=== PATIENT | male | born 1980 ===

== ENCOUNTER 2018-01-11 15:09 | Emergency (ER) | payer MEDICAID, OTHER ==
[2018-01-11 15:17] VITALS: O2SAT 97
--- NOTE | 2018-01-11 16:23 | ED PDOC ---
HPI: Chest Pain Time Seen by Provider: 01/11/18 15:22 Chief Complaint (Nursing): Chest Pain History Per: Patient, Family () Additional Complaint(s): Pt. states for the past week he's non-radiating b/l upper chest pain, neck pain radiating to the L shoulder, and a gradual onset holocephalic headache. Reports he has been self medicating with his 's propranolol/HCTZ as he checked his BP several days ago and it was 175/96. Of note, pt. has a hx of HTN and hypercholesterolemia but has not taken his meds in several years nor has he been seen by his PMD. States he lost his insurance. Denies SOB, trauma, visual changes, leg pain, hx of DVT or PE, fever, LOC, N/V/D, recent illness. Against Medical Advice - AMA Patient Left Against Medical Advice: The patient declines admission to the hospital and wishes to leave the Emergency Department. This action is against my medical advice. This decision was made with informed refusal. The patient was told that admission to the hospital is necessary. Explanation of the reasons why were discussed. The risks of leaving were explained to the patient and include, but are not limited to, worsening of known or currently unknown conditions, permanent disability and from undiagnosed or untreated conditions. The patient has the capacity to make this informed decision and understands my explanation of the current medical problem and risks of leaving. The patient voluntarily accepts these risks and signed an AMA form documenting our conversation. The patient was given the opportunity to ask questions and reconsider. The patient was encouraged to return to the Emergency Department at any time for further care. 01/11/18 19:30 Informed of all results and need to stay in the hospital for further evaluation. Refused and states he prefers to f/u with clinic instead. Encouraged to stay but still refused and told to return to ED immediately. ASA 324mg PO chew ordered. Past Medical History Reviewed: Historical Data, Nursing Documentation, Vital Signs Vital Signs: Last Vital Signs Temp 98.5 F 01/11/18 19:20 Pulse 67 01/11/18 19:43 Resp 16 01/11/18 19:20 BP 133/84 01/11/18 19:20 Pulse Ox 97 01/11/18 19:43 - Medical History PMH: Anxiety, HTN, Hypercholesterolemia Denies: CAD, HIV, Chronic Kidney Disease - Surgical History Other surgeries: R ankle surgery - Family History Family History: States: No Known Family Hx, MS Denies: CAD Other Family History: Uncle (mother's side) at 53 y/o. Aunt (mother's side) at 52 y/o - Living Arrangements Living Arrangements: With Family - Social History Current smoker - smoking cessation education provided: No Ex-Smoker (has not smoked in the last 12 months): No Alcohol: > 2 Drinks/Day Drugs: Denies - Home Medications Home Medications: Ambulatory Orders Medication Instructions Recorded metFORMIN [glucOPHAGE] 500 mg PO DAILY #7 tab 01/11/18 - Allergies Allergies/Adverse Reactions: Allergies Allergy/AdvReac Type Severity Reaction Status Date / Time No Known Allergies Allergy Verified 01/11/18 15:13 RENAN Risk Score for UA/NSTEMI - RENAN Risk Score Age > 64: NO 3 or more CAD Risk Factors: NO Known CAD (Stenosis greater than 50%): NO Aspirin use in past 7 days: NO Severe Angina: NO EKG ST changes greater than 0.5mm: NO Positive Cardiac Marker: NO RENAN Score: 0 Risk %: 5% Wells Criteria for PE - Wells Criteria for Pulmonary Embolism Clinical Signs and Symptoms of DVT: No P.E is #1 Diagnosis, or Equally Likely: No Heart Rate >100: No Immobilization at least 3 days;Surgery previous 4 weeks: No Previous, objectively diagnosed PE or DVT: No Hemoptysis: No Malignancy w/treatment within 6 months, or palliative: No Total Score: 0 Review of Systems ROS Statement: Except As Marked, All Systems Reviewed And Found Negative Cardiovascular: Positive for: Chest Pain Musculoskeletal: Positive for: Neck Pain Neurological: Positive for: Headache Physical Exam - Reviewed Nursing Documentation Reviewed: Yes Vital Signs Reviewed: Yes - Physical Exam Appears: Positive for: Well, Non-toxic, No Acute Distress Head Exam: Positive for: ATRAUMATIC, NORMAL INSPECTION, NORMOCEPHALIC Skin: Positive for: Normal Color, Warm. Negative for: Rash Eye Exam: Positive for: EOMI, Normal appearance, PERRL ENT: Positive for: Normal ENT Inspection Neck: Positive for: Normal, Painless ROM Cardiovascular/Chest: Positive for: Regular Rate, Rhythm, Chest Non Tender Respiratory: Positive for: Normal Breath Sounds. Negative for: Respiratory Distress Gastrointestinal/Abdominal: Positive for: Normal Exam, Soft. Negative for: Tenderness Back: Positive for: Normal Inspection. Negative for: L CVA Tenderness, R CVA Tenderness Extremity: Positive for: Normal ROM Neurologic/Psych: Positive for: Alert, Oriented, Gait (steady, unassisted), Other (no slurred speech or AOB). Negative for: Aphasia, Facial Droop - Laboratory Results Result Diagrams: 01/11/18 17:13 01/11/18 17:13 - ECG ECG: Positive for: Interpreted By Me ECG Rhythm: Positive for: Sinus Rhythm. Negative for: ST/T Changes Rate: 67 O2 Sat by Pulse Oximetry: 97 - Radiology X-Ray: Interpreted by Me (CXR, c-spine x-ray) X-Ray Interpretation: No Acute Disease - Progress ED Course And Treament: Labs, CT head w/o contrast, CXR, C-spine x-ray, toradol 30mg IV, IV NS bolus, EKG ordered. Disposition - Clinical Impression Clinical Impression: Acute chest pain, Hyperglycemia, Headache, Neck pain, Left against medical advice - Patient ED Disposition Is Patient to be Admitted: No - Disposition Referrals: [facility] [Outside] [facility] [Outside] Disposition: Against Medical Advice Disposition Time: 19:22 Condition: STABLE Additional Instructions: KINDRA SINCLAIR, thank you for letting us take care of you today. Your provider was Leanna Cunningham MD and you were treated for CHEST PAIN. The emergency medical care you received today was directed at your acute symptoms. If you were prescribed any medication, please fill it and take as directed. It may take several days for your symptoms to resolve. Return to the Emergency Department if your symptoms worsen, do not improve, or if you have any other problems. Please contact your doctor or call one of the physicians/clinics you have been referred to that are listed on the Patient Visit Information form that is included in your discharge packet. Bring any paperwork you were given at discharge with you along with any medications you are taking to your follow up visit. Our treatment cannot replace ongoing medical care by a primary care provider outside of the emergency department. Thank you for allowing the [facility] team to be part of your care today. If you had an X-Ray or CT scan: A Radiologist will review the ED reading if any change in treatment is needed we will contact you. If you had a blood, urine, or wound culture: It will take several days for the results, if any change in treatment is needed we will contact you. If you had an STI test: It will take 48 hours for the results. Please call after 1 week if you have not heard back. Prescriptions: metFORMIN [glucOPHAGE] 500 mg PO DAILY #7 tab Instructions: Headache, Adult, Chest Pain (DC), Hyperglycemia, Adult (DC), Leaving Against Medical Advice, Diabetes and Diet Forms: [facility] (Vietnamese) Print Language: MONEGASQUE
[2018-01-11 16:26] VITALS: PULSE 67
--- NOTE | 2018-01-11 16:37 | RAD ---
HISTORY: COMPARISON: 09/26/2014. TECHNIQUE: Chest PA and lateral FINDINGS: LINES AND TUBES: None. LUNG AND PLEURA: The lungs are well inflated and clear. No pleural effusion or pneumothorax. HEART AND MEDIASTINUM: The heart is not enlarged. The hilar and mediastinal contours are within normal limits. SKELETAL STRUCTURES: The bony structures are within normal limits for the patient's age. VISUALIZED UPPER ABDOMEN: Normal. OTHER FINDINGS: None. IMPRESSION: No active pulmonary disease.
--- NOTE | 2018-01-11 16:39 | RAD ---
Date of service: 01/11/2018 PROCEDURE: Cervical Spine Radiographs. HISTORY: Pain. COMPARISON: None. FINDINGS: BONES: There is normal alignment of the cervical vertebral bodies. There is straightening of the cervical spine with loss of normal cervical lordosis. Vertebral height is normal. Bone mineralization is normal. There is no acute fracture or traumatic anterior listhesis. The craniocervical junction is normal. The atlantoaxial joint normal. DISC SPACES: There is mild degenerative disc disease at C5-6 with anterior osteophytes, mild reduced disc heights and mild facet arthropathy. The remaining disc heights are maintained. SOFT TISSUES: Normal. No prevertebral soft tissue swelling. OTHER FINDINGS: None. IMPRESSION: Mild degenerative disc disease at C5-6. Straightening of the cervical spine may be positional or related to muscle spasm.
--- NOTE | 2018-01-11 16:45 | CT ---
Date of service: 01/11/2018 PROCEDURE: CT HEAD WITHOUT CONTRAST. HISTORY: Headache COMPARISON: None available. TECHNIQUE: Axial computed tomography images were obtained through the head/brain without intravenous contrast. Radiation dose: Total exam DLP = 845.69 mGy-cm. This CT exam was performed using one or more of the following dose reduction techniques: Automated exposure control, adjustment of the mA and/or kV according to patient size, and/or use of iterative reconstruction technique. FINDINGS: HEMORRHAGE: No intracranial hemorrhage. BRAIN: Alvarez-white matter differentiation is preserved. There is no mass, mass effect or abnormal extra-axial fluid collection. There is no territorial infarction. The midline sagittal structures are normal. VENTRICLES: The ventricles are normal in size, shape and configuration. CALVARIUM: The skull base and calvarium are normal. PARANASAL SINUSES: Predominantly clear. MASTOID AIR CELLS: Predominantly clear. OTHER FINDINGS: None. IMPRESSION: No acute intracranial abnormality.
[2018-01-11 17:19] LABS: BASO # 0.1 K/uL (0.0-0.2); BASO % 1.1 % (0.0-2.0); EOS # 0.1 K/uL (0.0-0.7); EOS % 1.5 % (0.0-4.0); HEMOGLOBIN 15.4 g/dL (12.0-18.0); LYMPH # 1.7 K/uL (1.0-4.3); LYMPH % 22.8 % (20.0-40.0); MEAN CELL VOLUME 86.3 fl (80.0-94.0); MEAN CORPUSCULAR HEMOGLOBIN 30.9 pg (27.0-31.0); MEAN CORPUSCULAR HGB CONC 35.7 g/dL (33.0-37.0); MEAN PLATELET VOLUME 8.7 fl (7.2-11.7); NEUT # 4.5 K/uL (1.8-7.0); NEUT % 61.6 % (50.0-75.0); RBC 4.98 Mil/uL (4.40-5.90); RED CELL DISTRIBUTION WIDTH 13.2 % (11.5-14.5); WHITE BLOOD COUNT 7.4 K/uL (4.8-10.8)
[2018-01-11 18:04] LABS: ALB/GLOB RATIO 1.2 (1.0-2.1); ALBUMIN 4.5 g/dL (3.5-5.0); ALT/SGPT 106 U/L (21-72); AST/SGOT 104 U/L (17-59); BLOOD UREA NITROGEN 14 mg/dl (9-20); CALCIUM 9.5 mg/dL (8.4-10.2); GFR AFRICAN-AMERICAN > 60; GFR NON-AFRICAN AMERICAN > 60
[2018-01-11 18:12] LABS: SQUAMOUS EPITHIAL < 1 /hpf (0-5); URINE BACTERIA RARE (<OCC); URINE BILIRUBIN NEGATIVE (NEGATIVE); URINE BLOOD NEGATIVE (NEGATIVE); URINE CLARITY SLIGHTY-CLOUDY (Clear); URINE COLOR YELLOW (YELLOW); URINE GLUCOSE (UA) >=500 mg/dL (Normal); URINE LEUKOCYTE ESTERASE NEG Leu/uL (Negative); URINE PROTEIN NEGATIVE (NEGATIVE)
[2018-01-11 18:24] LABS: BARBITURATES, UR NEGATIVE (NEGATIVE); BENZODIAZEPINES, UR NEGATIVE (NEGATIVE); OPIATES, UR NEGATIVE (NEGATIVE); PHENCYCLIDINE, UR NEGATIVE (NEGATIVE)
--- NOTE | 2018-01-11 18:54 | US ---
Date of service: 01/11/2018 HISTORY: elevated LFTs and bilirubin COMPARISON: None. TECHNIQUE: Sonographic evaluation of the right upper quadrant of the abdomen. FINDINGS: LIVER: Measures 17.1 cm in length. Hepatopedal blood flow. Fatty infiltration manifest ultrasonographically as increased echogenicity of the liver parenchyma. No mass. No intrahepatic bile duct dilatation. GALLBLADDER: Unremarkable. No gallstones. COMMON BILE DUCT: Measures 4.6 mm. No stones. No dilatation. PANCREAS: Unremarkable as visualized. No mass. No ductal dilatation. RIGHT KIDNEY: Measures 4.6 x 11.0 cm in length. Normal echogenicity. No calculus, mass, or hydronephrosis. AORTA: No aneurysmal dilatation. IVC: Unremarkable. OTHER FINDINGS: None . IMPRESSION: No acute findings related to/accounting for the clinical presentation. Hepatic steatosis without focal abnormality.
[2018-01-11 19:27] VITALS: RESP 16
[2018-01-11 20:16] VITALS: BP 144/70; TEMP 98
--- NOTE | 2018-01-12 08:29 | CARD ---
APPROVED REPORT Date of service: 01/11/2018 <Conclusion> Normal sinus rhythm Normal ECG
== END 2018-01-11 19:50 | disposition left against medical advice (07) ==
LOC: H.ER 15:09
DX: R07.9 Chest pain, unspecified (principal); I10 Essential (primary) hypertension; R51 Headache; M54.2 Cervicalgia; Z79.82 Long term (current) use of aspirin; Z87.891 Personal history of nicotine dependence; Z79.84 Long term (current) use of oral hypoglycemic drugs
CPT/HCPCS: 70450; 71046; 72040; 76705; 80053; 80320; 80324; 80345; 80346; 80349; 80353; 80358; 80361; 81003; 83992; 84484; 85025; 85378; 93005; 96374; 99285; J1885